=== PATIENT | female | born 1980 | race African-American/Black ===

== ENCOUNTER 2016-05-30 14:17 | Emergency (ER) | payer MEDICAID, OTHER ==
[~2016-05-30] VITALS: Ht 162.6 cm; Wt 63.0 kg
[~2016-05-30 14:17] MED LIST: ACETAMINOPHEN-1 EAC1 ORAL; ACETAMINOPHEN500 MG PO; ALBUTEROL SULF8.5 GM INH; ATARAX25 MG ORAL; AZITHROMYCIN250 MG ORAL; AZITHROMYCIN250 MG PO; BENADRYL50 MG PO; CIPRO500 MG PO; CIPROFLOXACIN500 M2 ORAL; CLEOCIN150 MG PO; CLINDAMYCIN HC300 MG ORAL; CYCLOBENZAPRINE10 MG ORAL; DOXYCYCLINE MO100 MG PO; DUAC GEL45 GM TP; IBUPROFEN400 M1 PO; IBUPROFEN400 MG ORAL; IBUPROFEN400 MG PO; IBUPROFEN600 MG ORAL; IBUPROFEN600 MG PO; IBUPROFEN800 MG ORAL; KEFLEX500 MG ORAL; MECLIZINE HCL25 MG PO; METRONIDAZOLE500 MG ORAL; NKM; NORCO 5-325 TA1 EACH ORAL; PERCOCET 5-3251 EACH ORAL; PERMETHRIN60 GM TOPIC; PHENAZOPYRIDIN100 MG ORAL; PHENAZOPYRIDIN200 MG ORAL; PROAIR HFA8.5 GM INH; PROMETHAZINE V237 ML ORAL; PROMETHAZINE-C118 M1 ORAL; PROMETHAZINE-D118 ML ORAL; PSEUDOEPHEDRINE30 MG PO; REGLAN10 MG PO; TRAMADOL HCL50 MG ORAL; TYLENOL WITH C1 EACH PO; VALIUM5 MG ORAL; ZOFRAN4 MG PO; [UNRECOGNIZED DRUG - OTHER] TOP
[2016-05-30 14:22] VITALS: BP 118/77
--- NOTE | 2016-05-30 14:41 | Emergency Room Report ---
History of Present Illness General Chief Complaint: Headache Source: Patient Present Illness HPI Patient presents with complaints of pain to the back of the head Bilateral upper trapezius area Reports that she has been trying to take [id number] medication since There was some minimal improvement however the pain continues denies any visual changes denies any vomiting or diarrhea Denies any posterior midline neck pain Denies any fall or trauma patient has had headaches in the past This feels very similar however has been persisting longer, Allergies: Coded Allergies: PENICILLINS (Verified Allergy, Rash, 10/25/11) Patient History Past Medical History: see triage record Pertinent Family History: none Last Menstrual Period: 05/02/2016 Reviewed Nursing Documentation: PMH: Agreed, PSxH: Agreed Nursing Documentation-PMH Past Medical History: No Stated History Review of Systems All Other Systems: negative except mentioned in HPI Physical Exam Vital Signs Date Time Temp Pulse Resp B/P Pulse Ox O2 Delivery O2 Flow Rate FiO2 05/30/16 14:22 98.2 78 16 118/77 99 Room Air Sp02 EP Interpretation: reviewed, normal General Appearance: well appearing, no apparent distress Head: normocephalic, atraumatic Eyes: bilateral eye EOMI, bilateral eye PERRL ENT: hearing grossly normal, normal pharynx, TMs + canals normal, uvula midline Neck: full range of motion, supple, no meningismus, no bony tend Respiratory: lungs clear, normal breath sounds, no rhonchi, no respiratory distress, no retraction, no accessory muscle use Cardiovascular #1: normal peripheral pulses, regular rate, rhythm, no edema, no gallop, no JVD, no murmur Gastrointestinal: normal bowel sounds, non tender, soft, no mass, no organomegaly, non-distended, no guarding, no hernia, no pulsatile mass, no rebound Genitourinary: no CVA tenderness Musculoskeletal: normal inspection Neurologic: oriented x3, responsive, senior catering sales manager III-XII nml as tested, motor strength/ tone normal, sensory intact Psychiatric: mood/affect normal Skin: normal color, no rash, warm/dry, palpation normal Lymphatic: normal inspection, no adenopathy Medical Decision Making Diagnostic Impression: Primary Impression: Headache ER Course Multiple differentials such as neurological, neurosurgical, infectious pathology entertained Patient shows findings of likely acute on chronic headache Without source of endorgan injury patient was treated here and is stable for close outpatient followup Last Vital Signs Date Time Temp Pulse Resp B/P Pulse Ox O2 Delivery O2 Flow Rate FiO2 05/30/16 14:22 98.2 78 16 118/77 99 Room Air Status: improved Disposition: HOME, SELF-CARE Condition: Improved Scripts Methocarbamol* (ROBAXIN-750*) 750 Mg Tablet 750 MG PO TID, #21 TAB 0 Refills Prov: MYKE TREADWELL D.O. 05/30/16 Acetaminophen With Codeine (T#3) (TYLENOL #3 TAB*) Y Tab 1 TAB ORAL Q8H Y for For Pain, #12 TAB Prov: MYKE TREADWELLO. 05/30/16 Ibuprofen* (MOTRIN*) 600 Mg Tablet 600 MG ORAL Q8H Y for For Pain, #20 TAB 0 Refills Prov: MYKE TREADWELL D.O. 05/30/16 Additional Instructions: Patient is provided with the discharge instructions notified to follow up with primary doctor in the next 2-3 days otherwise return to the er with any worsening symptoms. Please note that this report is being documented using Plainmark technology. This can lead to erroneous entry secondary to incorrect interpretation by the dictating instrument. MYKE TREADWELL D.O. May 30, 2016 14:41
[2016-05-30] MEDS ORDERED: Norco 10mg/325mg tab ORAL ONE (14:45)
[2016-05-30] MEDS ORDERED: Ketorolac 60mg Inj IM ONE (14:45)
[2016-05-30] MEDS ORDERED: ACETAMINOPHEN-1 EAC1 ORAL (14:56)
[2016-05-30] MEDS ORDERED: ROBAXIN-750750 MG PO (14:56)
[2016-05-30] MEDS ORDERED: IBUPROFEN600 MG ORAL (14:56)
[2016-05-30 15:06] VITALS: BP 118/77
== END 2016-05-30 15:06 | disposition home or self-care (01) ==
LOC: EMR 14:50
DX: R51 Headache (principal); Z88.0 Allergy status to penicillin
CPT/HCPCS: 96372; 99284

== ENCOUNTER 2017-01-17 19:10 | Emergency (ER) | payer MEDICAID ==
[~2017-01-17] VITALS: Ht 162.6 cm; Wt 67.1 kg
[~2017-01-17 19:10] MED LIST changes: +ROBAXIN-750750 MG PO
[2017-01-17 19:29] VITALS: BP 132/87
--- NOTE | 2017-01-17 19:42 | Emergency Room Report ---
History of Present Illness General Chief Complaint: Pain Source: Patient Present Illness HPI 36 YO Female presents to the ED c/O 09/15 in severity left sided neck pain x 4 days. She describes tightness and constant ache with pain exacerbations with turning her neck. pt. states on two occasions she felt a shooting pain down to her shoulder. pt. reports hx. of a/c injury but no acute trauma prior to onset of symptoms. pt. denies fall. she denies weakness in the associated arm. pt. denies fevers, chills, recent illness, nausea or vomiting. Denies numbness tingling or loss of sensation or gross motor movements of the extremities, incontinence of bowel or bladder. Denies CP, Palpitations, LOC, AMS, dizziness, Changes in Vision, Sensation, paresthesias, or a sudden severe headache. Allergies: Coded Allergies: PENICILLINS (Verified Allergy, Rash, 10/25/11) Patient History Past Medical History: see triage record Past Surgical History: none Pertinent Family History: none Last Menstrual Period: 01/01/17 : 5 Para: 3 Reviewed Nursing Documentation: PMH: Agreed, PSxH: Agreed Nursing Documentation-PMH Past Medical History: No History, Except For Review of Systems All Other Systems: negative except mentioned in HPI Physical Exam Vital Signs Date Time Temp Pulse Resp B/P (MAP) Pulse Ox O2 Delivery O2 Flow Rate FiO2 01/17/17 19:15 98.2 89 19 132/87 97 Room Air Sp02 EP Interpretation: reviewed, normal General Appearance: no apparent distress, alert, GCS 15, non-toxic Head: normocephalic, atraumatic Eyes: bilateral eye normal inspection, bilateral eye PERRL ENT: hearing grossly normal, normal pharynx, no angioedema, normal voice, TMs + canals normal, uvula midline Neck: full range of motion, no meningismus, no bony tend, tender lateral - left lateral specifically the left SCM Respiratory: lungs clear, normal breath sounds, no wheezing, speaking full sentences Cardiovascular #1: regular rate, rhythm, normal capillary refill Cardiovascular #2: 2+ radial (R), 2+ radial (L) Musculoskeletal: back normal, gait/station normal, normal range of motion, tender - LEft sided SCM ttp Neurologic: alert, oriented x3, responsive, motor strength/tone normal, sensory intact, normal gait, speech normal, no pronator, other - negative herring's , equal director of strategy & mobile strength. symmetric BR DTR, grossly normal Skin: normal color, no rash, warm/dry, well hydrated Lymphatic: no adenopathy Medical Decision Making PA Attestation Dr. Jeff is my supervising Physician whom patient management has been discussed with. Diagnostic Impression: Primary Impression: Muscle spasms of neck ER Course 36 YO Female presents to the ED c/O 09/15 in severity left sided neck pain x 4 days. She describes tightness and constant ache with pain exacerbations with turning her neck. pt. states on two occasions she felt a shooting pain down to her shoulder. pt. reports hx. of a/c injury but no acute trauma prior to onset of symptoms. pt. denies fall. she denies weakness in the associated arm. pt. denies fevers, chills, recent illness, nausea or vomiting. Denies numbness tingling or loss of sensation or gross motor movements of the extremities, incontinence of bowel or bladder. Denies CP, Palpitations, LOC, AMS, dizziness, Changes in Vision, Sensation, paresthesias, or a sudden severe headache. Ddx considered but are not limited to Fracture, dislocation, contusion, epidural abscess, Sprain/Strain/Spasm Vital signs: are WNL, pt. is afebrile H&PE are most consistent with muscle spasm. No neurological deficits, DTR's symmetric, no weakness. ORDERS: none required at this time. ED INTERVENTIONS: -Soma PO I do not suspect an emergent condition at this time. With current presentation, pt. is stable for close outpatient follow up and conservative treatment. D/w pt. to return promptly to ED with worsening or new symptoms.- Pt. (and or responsible republican) verbalizes' understanding and agreement with proposed treatment plan. d/w pt. may need MRI if symptoms persist. DISCHARGE: At this time pt. is stable for d/c to home. Will provide printed patient care instructions, and any necessary prescriptions. Care plan and follow up instructions have been discussed with the patient prior to discharge. Last Vital Signs Date Time Temp Pulse Resp B/P (MAP) Pulse Ox O2 Delivery O2 Flow Rate FiO2 01/17/17 19:29 98.2 89 19 132/87 97 Room Air Disposition: HOME, SELF-CARE Condition: Stable Scripts Ibuprofen* (MOTRIN*) 400 Mg Tablet 400 MG ORAL THREE TIMES A DAY, #30 TAB 0 Refills Prov: Pat Rivero 01/17/17 Lidocaine (Lidoderm) 1 Each Adh..patch 1 PATCH TOPIC DAILY, #20 PATCH 0 Refills Patch(es) may remain in place for up to 12 hours in any 24-hour period. Prov: Pat Rivero 01/17/17 Methocarbamol* (ROBAXIN-750*) 750 Mg Tablet 750 MG PO QID for 7 Days, #28 TAB 0 Refills Prov: Pat Rivero 01/17/17 Departure Forms: Return to Work Return to Work Date: Jan 20, 2017 Work Restrictions: No Heavy Lifting, No Prolonged Standing Return to Full Activity: Jan 20, 2017 Patient Instructions: Muscle Cramps and Spasms, [id number] Additional Instructions: Take medications as directed. Follow up with a Primary Care Provider in 3-5 days, even if your symptoms have resolved. --Please review list of primary care clinics, if you do not already have a primary care provider Return sooner to ED if new symptoms occur, or current symptoms become worse. Do not drink alcohol, drive, or operate heavy machinery while taking Muscle Relaxers as this may cause drowsiness. - Please note that this Emergency Department Report was dictated using txtrnitrate operator technology software, occasionally this can lead to erroneous entry secondary to interpretation by the dictation equipment. Pat Rivero Jan 17, 2017 19:42
[2017-01-17] MEDS ORDERED: LIDODERM700 M1 TOPIC (19:50)
[2017-01-17] MEDS ORDERED: IBUPROFEN400 MG ORAL (19:50)
[2017-01-17] MEDS ORDERED: ROBAXIN-750750 MG PO (19:50)
[2017-01-17 19:55] VITALS: BP 132/87
== END 2017-01-17 19:55 | disposition home or self-care (01) ==
LOC: EMR 19:44
DX: M62.838 Other muscle spasm (principal); M54.2 Cervicalgia; Z88.0 Allergy status to penicillin
CPT/HCPCS: 99284

== ENCOUNTER 2017-02-02 16:12 | Emergency (ER) | payer MEDICAID ==
[~2017-02-02] VITALS: Ht 162.6 cm; Wt 65.8 kg
[~2017-02-02 16:12] MED LIST changes: +LIDODERM700 M1 TOPIC
[2017-02-02] MEDS ORDERED: METRONIDAZOLE500 MG ORAL ×2 (17:52→17:55)
--- NOTE | 2017-02-02 17:52 | Emergency Room Report ---
History of Present Illness General Chief Complaint: Female Urogenital Problems Source: Patient Present Illness HPI 36-year-old female presents to the emergency department complaining of milky white vaginal discharge with strong malodor x7 days. denies recent abx use, reports hx of yeast infection in the past and states this is not of that character. denies dysuria, denies hematuria or frequency. pt. denies recent unprotected intercourse or hx of STD. denies vaginal lesions. Denies abdominal pain or tenderness, denies fevers, chills, Nausea or vomiting. denies constipation or diarrhea. No joint pain or swollen tender lymph nodes . Denies rashes . Denies CP, Palpitations, LOC, AMS, dizziness, Changes in Vision , Sensation, paresthesias, or a sudden severe headache. Allergies: Coded Allergies: PENICILLINS (Verified Allergy, Rash, 10/25/11) Patient History Past Medical History: see triage record Past Surgical History: none Pertinent Family History: none Last Menstrual Period: 01/27/17 Reviewed Nursing Documentation: PMH: Agreed, PSxH: Agreed Nursing Documentation-PMH Past Medical History: No History, Except For Review of Systems All Other Systems: negative except mentioned in HPI Physical Exam Vital Signs Date Time Temp Pulse Resp B/P (MAP) Pulse Ox O2 Delivery O2 Flow Rate FiO2 02/02/17 16:30 98.2 99 18 132/88 100 Room Air Sp02 EP Interpretation: reviewed, normal General Appearance: no apparent distress, alert, GCS 15, non-toxic Head: normocephalic, atraumatic ENT: hearing grossly normal, normal voice Neck: full range of motion Respiratory: lungs clear, normal breath sounds, speaking full sentences Cardiovascular #1: regular rate, rhythm Gastrointestinal: normal bowel sounds, non tender, soft Rectal: deferred Genitourinary: normal inspection, no CVA tenderness Musculoskeletal: back normal, gait/station normal, normal range of motion, non- tender Neurologic: alert, oriented x3, responsive, motor strength/tone normal, sensory intact, normal gait, speech normal Skin: normal color, no rash, warm/dry, well hydrated Lymphatic: no adenopathy Medical Decision Making PA Attestation Dr. ring is my supervising Physician whom patient management has been discussed with. Diagnostic Impression: Primary Impression: Bacterial vaginosis ER Course 36-year-old female presents to the emergency department complaining of milky white vaginal discharge with strong malodor x7 days. denies recent abx use, reports hx of yeast infection in the past and states this is not of that character. denies dysuria, denies hematuria or frequency. pt. denies recent unprotected intercourse or hx of STD. denies vaginal lesions. Denies abdominal pain or tenderness, denies fevers, chills, Nausea or vomiting. denies constipation or diarrhea. No joint pain or swollen tender lymph nodes . Denies rashes . Denies CP, Palpitations, LOC, AMS, dizziness, Changes in Vision , Sensation, paresthesias, or a sudden severe headache. Ddx considered but are not limited to UTi , STI, G & C, trichomonas, Vaginitis , cervicitis, bartholins gland cyst or cellulitis. Vital signs: are WNL, pt. is afebrile H&PE are most consistent with Bacterial vaginosis ORDERS: - UA: pt. declines ED INTERVENTIONS: -none required at this time. DISCHARGE: At this time pt. is stable for d/c to home. Will provide printed patient care instructions, and any necessary prescriptions. Care plan and follow up instructions have been discussed with the patient prior to discharge. Last Vital Signs Date Time Temp Pulse Resp B/P (MAP) Pulse Ox O2 Delivery O2 Flow Rate FiO2 02/02/17 16:30 98.2 99 18 132/88 100 Room Air Disposition: HOME, SELF-CARE Condition: Stable Scripts Metronidazole* (FLAGYL*) 500 Mg Tablet 500 MG ORAL BID, #14 TAB 0 Refills Prov: Pat Rivero 02/02/17 Referrals: [facility] (PCP) Patient Instructions: Bacterial Vaginosis, [id number] Additional Instructions: Take medications as directed. Follow up with a Primary Care Provider in 3-5 days, even if your symptoms have resolved. --Please review list of primary care clinics, if you do not already have a primary care provider Return sooner to ED if new symptoms occur, or current symptoms become worse. ! Do not drink alcohol while taking Flagyl/Metronidazole as this will cause a skin reaction. - Please note that this Emergency Department Report was dictated using Signicatsleeve setter safety stitch technology software, occasionally this can lead to erroneous entry secondary to interpretation by the dictation equipment. Pat Rivero Feb 02, 2017 17:52
[2017-02-02 18:05] VITALS: BP 143/90
== END 2017-02-02 18:05 | disposition home or self-care (01) ==
LOC: EMR 17:36
DX: N76.0 Acute vaginitis (principal); B96.89 Other specified bacterial agents as the cause of diseases classified elsewhere; Z88.0 Allergy status to penicillin
CPT/HCPCS: 99283